=== PATIENT | female | born 1995 | race Caucasian/White ===

== ENCOUNTER 2025-02-07 13:20 | Outpatient (CLI) | payer OTHER, SELFPAY | END 2025-02-07 13:21 | disposition home or self-care (01) | LOC: NFLDREF 13:21 | PROVIDERS: Visit Provider Obstetrics & Gynecology | DX: I10 Essential (primary) hypertension (principal) | CPT/HCPCS: 80061 ==

== ENCOUNTER 2025-06-06 13:44 | Outpatient (CLI) | payer OTHER, SELFPAY ==
--- NOTE | 2025-06-06 14:00 | CRLHL7_ITS ---
For Patients: As a result of the Century Cures Act, medical imaging exams and procedure reports are released immediately into your electronic medical record. You may view this report before your referring provider. If you have questions, please contact your health care provider. OB ULTRASOUND FIRST TRIMESTER, TRANSVAGINAL INDICATION: Dating and viability. TECHNIQUE: Real time noonan scale imaging of the fetus was performed. Transvaginal imaging performed. LMP: 04/04/2025. JESUS by LMP: 01/09/2026. GA: 9 w, 0 d. Previous US: No. CRL: 2.6 cm. 9 w 3 d. JESUS: 01/06/2026. FHR: 176 BPM. Gestational sac: 4.1 cm. Appears within normal limits. Yolk sac: 4.0 mm. Appears within normal limits. Right ovary: Within normal limits. 2.5 x 1.1 x 2.1 cm. Left ovary: Within normal limits. 4.3 x 2.3 x 2.5 cm. CL. IMPRESSION: 1. Single living intrauterine measures 9 weeks 3 days with a sonographic due date 01/06/2026. 2. Left inferior subchorionic hemorrhage measures 2.1 x 1.5 x 0.9 cm. 3. Right inferior subchorionic hemorrhage measures 2.7 x 1.1 x 1.7 cm. 4. Corpus luteal cyst left ovary measures 2.2 x 2.1 x 2.1 cm. Judah Dukes M.D. Diagnostic Radiologist [email or web address] SP/Dictated by: Judah Dukes MD @ 06/06/2025 4:04:00 PM (Electronically Signed)
== END 2025-06-06 13:45 | disposition home or self-care (01) ==
LOC: US 13:45
PROVIDERS: Visit Provider Physician Assistant
DX: O20.9 Hemorrhage in early pregnancy, unspecified (principal); O34.81 Maternal care for other abnormalities of pelvic organs, first trimester; N83.12 Corpus luteum cyst of left ovary; Z3A.09 9 weeks gestation of pregnancy
CPT/HCPCS: 76817

== ENCOUNTER 2025-06-06 15:27 | Outpatient (CLI) | payer OTHER, SELFPAY ==
[2025-06-06 20:57] LABS: Chlamydia DNA Amplified* NOT DETECTED (No Detected); GC DNA Amplified* NOT DETECTED (No Detected)
== END 2025-06-06 15:28 | disposition home or self-care (01) ==
PROVIDERS: Visit Provider Physician Assistant
DX: O20.9 Hemorrhage in early pregnancy, unspecified (principal); O34.81 Maternal care for other abnormalities of pelvic organs, first trimester; N83.12 Corpus luteum cyst of left ovary; Z3A.09 9 weeks gestation of pregnancy
CPT/HCPCS: 82565; 82570; 83020; 83021; 84156; 84450; 84460; 84520; 84550; 85660; 86592; 86703; 86704; 86706; 86762; 86787; 86803; 86850; 86900; 86901; 87086; 87340; 87491; 87591

== ENCOUNTER 2025-06-14 06:45 | Outpatient (CLI) | payer OTHER, SELFPAY | END 2025-06-14 06:46 | disposition home or self-care (01) | LOC: NFLDREF 06-19 20:25 | PROVIDERS: Visit Provider Physician Assistant | DX: I10 Essential (primary) hypertension (principal) | CPT/HCPCS: 82570; 84156 ==

== ENCOUNTER 2025-07-05 10:20 | Outpatient (CLI) | payer OTHER, SELFPAY | END 2025-07-05 10:21 | disposition home or self-care (01) | LOC: NFLDREF 07-11 15:51 | PROVIDERS: Visit Provider Registered Nurse | DX: I10 Essential (primary) hypertension (principal) | CPT/HCPCS: 84450; 84460 ==